=== PATIENT | female | born 1990 | race Caucasian/White ===

== ENCOUNTER 2024-10-28 21:19 | Emergency (ER) | payer SELFPAY ==
[2024-10-28 21:22] VITALS: BP 126/76; PULSE 110; RESP 16; TEMP 37.6; O2SAT 100; BMI 27.4
[2024-10-28] MEDS: KETOROLAC 30 MG/ML VIAL IM (21:46)
[2024-10-28] MEDS: methylPREDNISolone 125 MG/2 ML VIAL IM (21:46)
[2024-10-28 21:49] LABS: Strep Grp A by PCR Rapid Negative (Negative)
--- NOTE | 2024-10-28 22:36 | ED.URI ---
HPI - URI/Sore Throat General Chief Complaint: Upper Respiratory Symptoms Stated Complaint: Sore Throat Time Seen by Provider: 10/28/24 21:42 Source: patient Mode of arrival: Ambulatory History of Present Illness HPI Narrative: 34-year-old female with no significant past medical history presents with sore throat since unrelieved with OTC meds having difficulty swallowing and drinking at this time. Patient also reports a nonproductive cough for past few days but denies nausea, vomiting, diarrhea, sick contacts, fever, chills, or body ache. Other than what is stated 14 point review of system is negative Related Data Previous Rx's ?Medication ?Instructions ?Recorded penicillin V potassium 500 mg 500 mg PO BID #20 tabs 10/28/24 tablet prednisone 20 mg tablet 20 mg PO DAILY #5 tabs 10/28/24 Allergies Allergy/AdvReac Type Severity Reaction Status Date / Time No Known Drug Allergies Allergy Verified 10/28/24 21:22 Review of Systems Review of Systems ROS Unobtainable: All systems reviewed & are unremarkable except as noted in HPI and below Patient History Smoking Status: Never smoker Exam Narrative Exam Narrative: GENERAL: [34] year old patient appears stated age. Well-developed patient, in mild distress. HEAD: Atraumatic. Normocephalic. EYES: Pupils equal round and reactive. Extraocular motions intact. No scleral icterus. No injection or drainage. ENT: Nose without bleeding, purulent drainage. Throat erythema tonsillar hypertrophy with exudate. Airway patent. NECK: Trachea midline. Non tender CARDIOVASCULAR: Regular rate and rhythm without murmurs, gallops, or rubs. RESPIRATORY: Clear to auscultation. Breath sounds equal bilaterally. No wheezes, rales, or rhonchi. GASTROINTESTINAL: Abdomen soft, non-tender, nondistended. EXTREMITIES: No edema or joint tenderness. BACK: Nontender without deformity or crepitance. No flank tenderness. NEURO: AOx3. SKIN: No rash or erythema of visible areas Initial Vital Signs Initial Vital Signs: Vital Signs Temperature 99.6 F 10/28/24 21:22 Pulse Rate 110 H 10/28/24 21:22 Respiratory Rate 16 10/28/24 21:22 Blood Pressure 126/76 10/28/24 21:22 Pulse Oximetry 100 10/28/24 21:22 Oxygen Delivery Method Room Air 10/28/24 21:22 Course Orders Ordered: ED Orders 10/28/24 21:29 Strep Grp A by PCR Rapid Stat Throat Culture Stat Discontinued Medications Ketorolac Tromethamine (Ketorolac 30 Mg/Ml Vial) 30 mg IM NOW ONE Stop: 10/28/24 21:33 Last Admin: 10/28/24 21:46 Dose: 30 mg Documented By: LOLIS Methylprednisolone (Methylprednisolone 125 Mg/2 Ml Vial) 125 mg IM NOW ONE Stop: 10/28/24 21:33 Last Admin: 10/28/24 21:46 Dose: 125 mg Documented By: LOLIS Vital Signs Vital signs: Vital Signs - 8 hr 10/28/24 21:22 Temperature 99.6 F Pulse Rate 110 H Respiratory Rate 16 Blood Pressure 126/76 Pulse Oximetry 100 Oxygen Delivery Method Room Air MDM - URI/Sore Throat Lab Data Labs: Lab Results 10/28/24 Range/Units 21:29 Group A Strep (PCR) Negative (Negative) MDM Narrative Medical decision making narrative: Vital signs, nurse triage note, medication list, previous ER visits, and all imaging studies reviewed. Patient given Toradol Solu-Medrol and Rocephin IM. DC home on pen VK and prednisone. Differential diagnosis includes strep COVID flu tonsillitis mono Discharge Plan Departure Patient Disposition: Home Clinical Impression: Acute bacterial tonsillitis Instructions: DI for Pharyngitis/Tonsillopharyngitis -- Adult Activity Restrictions/Additional Instructions: Return with new or worsening symptoms. Take your medicines as directed. Follow up PCP 1-2 weeks if no improvement in symptoms. Prescriptions: New penicillin V potassium 500 mg tablet 500 mg PO BID Qty: 20 0RF prednisone 20 mg tablet 20 mg PO DAILY Qty: 5 0RF Stand Alone Forms: Patient Portal/API
[2024-10-28] MEDS: cefTRIAXone 2,000 MG VIAL 1000 MG IM (23:03)
[2024-10-28] MEDS: LIDOCAINE 1% 20 ML INJ (23:05)
[2024-10-28 23:20] VITALS: BP 116/72; PULSE 74; RESP 16; TEMP 37.1; O2SAT 98
== END 2024-10-28 23:39 | disposition home or self-care (01) ==
PROVIDERS: Emergency Provider Family Medicine
DX: J03.80 Acute tonsillitis due to other specified organisms (principal); B96.89 Other specified bacterial agents as the cause of diseases classified elsewhere
CPT/HCPCS: 87070; 87651; 96372; 99283; 99284; J0696; J1885; J2919